=== PATIENT | male | born 1935 | race Caucasian/White ===

== ENCOUNTER → 2017-01-02 | Outpatient (CLI) | payer MEDICARE ==
[~2017-01-02] MED LIST: ASPI-496 PO; DENO60DI IM-VACC; HYDR-3138 PO; LEVO88TA4 PO
[2017-01-02 15:52] LABS: ASPARTATE AMINO TRANSFERASE 17 U/L (15-37); BLOOD UREA NITROGEN 19 mg/dL (7-18)
== END | disposition home or self-care (01) ==
LOC: CFH 13:03
PROVIDERS: ATTEND Internal Medicine Cardiovascular Disease
DX: I10 Essential (primary) hypertension (principal); E78.5 Hyperlipidemia, unspecified
CPT/HCPCS: 36415; 80053; 80061

== ENCOUNTER 2017-10-31 10:27 | Day surgery (SDC) | payer MEDICARE ==
[2017-10-27 13:08] VITALS: BP 115/61
[~2017-10-31] VITALS: Ht 175.3 cm; Wt 79.6 kg
[~2017-10-31 10:27] MED LIST changes: +COLE1TAB PO; -HYDR-3138 PO; +HYDR-3237 PO; +LATA2.5D3 EACHEYE; +PANT40TA5 PO; +ROSU5TAB PO
[2017-10-31 11:04] VITALS: BP 115/61
[2017-10-31] MEDS ORDERED: PROPOFOL 10 MG/ML, 20ML ONE ×3 (11:16→12:19)
[2017-10-31] MEDS ORDERED: LIDOCAINE-MPF 1%, 2ML INFIL ONE (12:00)
[2017-10-31] MEDS ORDERED: LACTATED RINGERS 1,000 ML IV SCH (12:00)
[2017-10-31] MEDS ORDERED: PHENYLEPHRINE 10 MG/ML ONE (12:11)
== END 2017-10-31 15:40 ==
LOC: OUT 10:27
PROVIDERS: ATTEND Internal Medicine
DX: K21.0 Gastro-esophageal reflux disease with esophagitis (principal); K22.2 Esophageal obstruction; K31.89 Other diseases of stomach and duodenum; E78.5 Hyperlipidemia, unspecified; E03.9 Hypothyroidism, unspecified; Z85.46 Personal history of malignant neoplasm of prostate
CPT/HCPCS: 43259; C1725; J2370; J2704

== ENCOUNTER → 2018-07-24 | Outpatient (CLI) | payer MEDICARE ==
[~2018-07-24] MED LIST changes: +OMNIPAQUE 350 MG/ML, 75ML BOTTLE ONE
[2018-07-24 12:04] LABS: CREATININE 0.95 mg/dL (0.7-1.3)
== END | disposition home or self-care (01) ==
LOC: RAD 11:27
PROVIDERS: ATTEND Ophthalmology
DX: H53.10 Unspecified subjective visual disturbances (principal); G31.9 Degenerative disease of nervous system, unspecified
CPT/HCPCS: 36415; 70460; 82565; 84520; Q9967

== ENCOUNTER → 2018-10-05 | Outpatient (CLI) | payer MEDICARE ==
[~2018-10-05] MED LIST changes: -OMNIPAQUE 350 MG/ML, 75ML BOTTLE ONE; +REGADENOSON 0.4 MG/5 ML SYRINGE ONE
== END | disposition home or self-care (01) ==
LOC: CVU 10:29
PROVIDERS: ATTEND Internal Medicine Cardiovascular Disease
DX: I08.8 Other rheumatic multiple valve diseases (principal); I71.4 Abdominal aortic aneurysm, without rupture; I21.19 ST elevation (STEMI) myocardial infarction involving other coronary artery of inferior wall; Z95.0 Presence of cardiac pacemaker; Z87.891 Personal history of nicotine dependence
CPT/HCPCS: 78452; 93017; 93306; A9502; J2785

== ENCOUNTER → 2019-05-08 | Outpatient (CLI) | payer MEDICARE ==
[~2019-05-08] MED LIST changes: +OMNIPAQUE 350 MG/ML, 100ML BOTTLE ONE; -REGADENOSON 0.4 MG/5 ML SYRINGE ONE
== END | disposition home or self-care (01) ==
LOC: RAD 09:45
PROVIDERS: ATTEND Urology
DX: I71.4 Abdominal aortic aneurysm, without rupture (principal); N28.1 Cyst of kidney, acquired; M12.88 Other specific arthropathies, not elsewhere classified, other specified site; Z85.46 Personal history of malignant neoplasm of prostate; Z87.891 Personal history of nicotine dependence; Z85.9 Personal history of malignant neoplasm, unspecified; Z88.9 Allergy status to unspecified drugs, medicaments and biological substances
CPT/HCPCS: 74178; 78306; A9503; Q9967

== ENCOUNTER → 2019-10-29 | Outpatient (CLI) | payer MEDICARE ==
[~2019-10-29] MED LIST changes: -OMNIPAQUE 350 MG/ML, 100ML BOTTLE ONE
[2019-10-29 15:41] LABS: BASOPHILS # (AUTO) 0.02 x10^3/uL (0-0.1); BASOPHILS % (AUTO) 0 % (0-1); EOSINOPHILS # (AUTO) 0.11 x10^3/uL (0-0.4); EOSINOPHILS % (AUTO) 2 % (1-7); LYMPHOCYTES # (AUTO) 1.09 x10^3/uL (1-3.4); LYMPHOCYTES % (AUTO) 24 % (22-44); MD NO; MEAN CORPUSCULAR HEMOGLOBIN 31.7 pg (27.5-34.5); MEAN CORPUSCULAR HGB CONC 33.8 g/dL (33.2-36.2); MEAN CORPUSCULAR VOLUME 93.8 fL (81-97); MEAN PLATELET VOLUME 7.7 fL (7.4-10.4); MONOCYTES # (AUTO) 0.33 x10^3/uL (0.2-0.8); MONOCYTES % (AUTO) 7 % (2-9); NEUTROPHILS # (AUTO) 2.98 x10^3/uL (1.8-6.8); NEUTROPHILS % (AUTO) 66 % (42-75); PLATELET COUNT 157 x10^3/uL (130-400); RED BLOOD COUNT 4.22 x10^6/uL (4.38-5.82); RED CELL DISTRIBUTION WIDTH 13.6 % (9.4-14.8)
[2019-10-29 16:02] LABS: ALANINE AMINOTRANSFERASE 16 U/L (12-78); ALBUMIN 3.8 g/dL (3.4-5.0); ANION GAP 6 mmol/L (5-15); CALCIUM 8.8 mg/dL (8.5-10.1); CHLORIDE 106 mmol/L (98-107)
[2019-10-29 16:29] LABS: ALKALINE PHOSPHATASE 101 U/L (45-117); BILIRUBIN,TOTAL 1.3 mg/dL (0.2-1.0); CREATININE 0.89 mg/dL (0.7-1.3); FOLATE LEVEL 15.1 ng/mL (3.1-17.5); TOTAL PROTEIN 7.4 g/dL (6.4-8.2)
== END | disposition home or self-care (01) ==
LOC: CFH 11:46
PROVIDERS: ATTEND Internal Medicine
DX: E03.9 Hypothyroidism, unspecified (principal); M81.0 Age-related osteoporosis without current pathological fracture; R97.20 Elevated prostate specific antigen [PSA]
CPT/HCPCS: 36415; 80053; 82306; 82607; 82746; 84153; 84439; 84443; 85025